=== PATIENT | male | born 1940 | race Caucasian/White ===

== ENCOUNTER 2016-11-01 14:43 | Inpatient (IN) | payer MEDICARE, OTHER ==
[~2016-11-01] VITALS: Ht 182.9 cm; Wt 93.0 kg
[2016-11-04] MEDS ORDERED: MULTTAB23 PO (09:06)
[2016-11-04] MEDS ORDERED: FISH1000 PO (09:06)
[2016-11-04] MEDS ORDERED: VITA10006 PO (09:06)
[2016-11-04] MEDS ORDERED: VITA20003 PO (09:06)
[2016-11-04] MEDS ORDERED: GLUCTAB32 PO (09:06)
[2016-11-04] MEDS ORDERED: ATOR20TA15 PO (09:06)
[2016-11-04] MEDS ORDERED: VITA10007 PO (09:06)
[2016-11-04] MEDS ORDERED: ASPI81CH CHEW (09:06)
[2016-11-20] MEDS: LACTATED RINGER'S 1000 ML IV SCH (05:45)
[2016-11-20 05:50] VITALS: BP 164/93; PULSE 87; RESP 20; TEMP 97.8; O2SAT 97
[2016-11-20] MEDS ORDERED: METOPROLOL TARTRATE 25 MG TAB PO PRN (06:00)
[2016-11-20] MEDS ORDERED: SODIUM CHLORID 0.9% 500 ML IV SCH (06:00)
[2016-11-20] MEDS ORDERED: ceFAZolin 2 GM PREMIX 50 ML IV SCH (06:00)
[2016-11-20] MEDS ORDERED: VANCOMYCIN 1000 MG/NS 250 ML (for <70 kg) IV SCH ×2 (06:00)
[2016-11-20] MEDS ORDERED: INSULIN HUMAN REGULAR 1,000 UNITS/10 ML VIAL SQ PRN (06:00)
[2016-11-20] MEDS ORDERED: POVIDONE IODINE 7.5% SCRUB 118 ML BOTTLE TOPICAL SCH (06:00)
[2016-11-20] MEDS ORDERED: DEXAMETHASONE SOD PHOS 20 MG/5 ML VIAL IV SCH (06:00)
[2016-11-20] MEDS ORDERED: GENTAMICIN SULFATE 80 MG/2 ML VIAL ONE (06:17)
[2016-11-20] MEDS ORDERED: ACETAMINOPHEN 1000 MG/100 ML VIAL IV ONE (06:44)
[2016-11-20] MEDS ORDERED: MIDAZOLAM HCL 2 MG/2 ML VIAL ONE (06:45)
[2016-11-20] MEDS ORDERED: FAMOTIDINE 20 MG/2 ML VIAL ONE (06:45)
--- NOTE | 2016-11-20 06:56 | HHI.FF ---
Face to Face Verification Diagnosis: (1) Status post total hip replacement, left (2) Osteoarthritis of left hip Physical Therapy Gait training, Transfer training, bed to chair Hip: Total hip Left LE Weight Bearing: WB as tolerated Left LE Range of Motion: Active ROM Nursing Nursing: Blair teaching, Dressing changes Dressing Changes: Daily dressing change I have seen patient Juan M Lu on 11/20/16. My clinical findings support the need for the requested home health care services because: Limited ability to care for self High risk of falls I certify that my clinical findings support that this patient is homebound because: Post-op weakness Unsteady gait/balance Desmond Chris Nov 20, 2016 06:56
--- NOTE | 2016-11-20 06:56 | HHI.DCPOC ---
Discharge Care Plan Diagnosis: (1) Status post total hip replacement, left (2) Osteoarthritis of left hip Your Health Problems Are: Difficulty with ADL Goals to Promote Your Health * To prevent worsening of your condition and complications * To maintain your health at the optimal level Directions to Meet Your Goals Take your medications as prescribed Follow your dietary instruction Follow activity as directed Keep your appointments as scheduled Take your immunizations and boosters as scheduled If your symptoms worsen call your PCP, if no PCP go to Urgent Care Center or Emergency Room Smoking is Dangerous to Your Health. Avoid second hand smoke Call the 24-hour hour crisis hotline for domestic abuse at Desmond Chris Nov 20, 2016 06:56
[2016-11-20] MEDS ORDERED: COMMODE 3-IN-11 MIS (06:58)
[2016-11-20] MEDS ORDERED: WALKER WHEELS/F1 MIS (06:58)
[2016-11-20] MEDS ORDERED: SODIUM CHLORIDE 0.9% IV SCH ×2 (07:00→08:45)
[2016-11-20] MEDS ORDERED: TRANEXAMIC ACID IV SCH ×2 (07:00→08:45)
[2016-11-20] MEDS ORDERED: EXPAREL PERI-ARTICULAR INJECTION (TOTAL VOL. 60 ML) P-ARTICULR SCH ×2 (07:00)
[2016-11-20] MEDS ORDERED: MAGNESIUM HYDROXIDE SUSP 30 ML CUP PO PRN (08:45)
[2016-11-20] MEDS ORDERED: MORPHINE SULFATE 4 MG/ML INJ IV PUSH PRN (08:45)
[2016-11-20] MEDS ORDERED: BISACODYL 10 MG SUPP PR PRN (08:45)
[2016-11-20] MEDS ORDERED: Post-op Orders (for Pharmacy) MISC XX ONE (08:45)
[2016-11-20] MEDS ORDERED: ALUMINUM/MAGNESIUM/SIMETH 30 ML CUP PO PRN (08:45)
[2016-11-20] MEDS ORDERED: SODIUM CHLORIDE 0.9% FLUSH 5 ML FLUSH IVF PRN (08:45)
[2016-11-20] MEDS ORDERED: ZOLPIDEM TARTRATE 5 MG TAB PO PRN (08:45)
[2016-11-20] MEDS ORDERED: NALOXONE HCL 0.4 MG/ML AMP IV PRN (08:45)
[2016-11-20] MEDS ORDERED: ONDANSETRON HCL 4 MG/2 ML VIAL IVP PRN (08:45)
[2016-11-20] MEDS ORDERED: ACETAMINOPHEN/HYDROcodone 325 MG/5 MG TAB PO PRN (08:45)
[2016-11-20] MEDS ORDERED: diphenhydrAMINE HCL 50 MG/ML VIAL IV PRN (08:45)
--- NOTE | 2016-11-20 08:49 | PD.OP ---
cc: Noe Lopez MD Operative Report Date of Surgery: Nov 20, 2016 Preoperative Diagnosis: Left hip severe osteoarthritis Postoperative Diagnosis: Same Procedure: Left total hip arthroplasty Anesthesia: Gen. Surgeon: Noe Lopez Kiln Worker(s): DIMITRI Mcdonnell The surgical procedure was assisted by my Advanced Registered Nurse Practitioner. My LOAN ADVISER presence was necessary throughout this case for the manipulation and positioning of the surgical extremity. My LOAN ADVISER was assisting me throughout the duration of this procedure. The skill set of an Advance Registered Nurse Practitioner was medically necessary to complete this procedure. During the surgical case, the surgical assistant certified was working at the back table and the Advance Registered Nurse Practitioner was directly assisting me. Operation and Findings: IMPLANT DESCRIPTION: 1. [place] Gription Cup, acetabular size 58. 2. [place] AltrX polyethylene, neutral. 4. [place] femoral stem size 10, no collar, high offset. 5. Femoral head/neck metal, 36, 1.5. ESTIMATED BLOOD LOSS: 250 cc. JUSTIFICATION FOR PROCEDURE: The patient has end-stage osteoarthritis to the hip. There is an attached conservative measures pathway form in the chart that describes the nonoperative measures that were undertaken prior to consideration of surgical management. The patient understood the risks and benefits of surgical management. See my office notes for further details. PROCEDURE: The patient was brought back to the operative theatre. Adequate anesthesia was obtained. The patient received intravenous vancomycin and Ancef. The patient was carefully placed on the operative table. The lower extremity was prepped and draped in the usual sterile fashion. Fluoroscopic images were obtained. We made a standard anterior incision over the hip. We dissected through the TFL fascia, exposing the anterior capsule. Arthrotomy was performed in a T-shaped fashion. The capsule was tagged with a #2 FiberWire. End-stage arthritis was identified. Osteotomy was performed through the femoral neck exposing the acetabulum. Remnants of the labrum were resected and osteophytes were removed. We sequentially reamed the acetabulum. We trialed the hip and placed the final cup into position. This was done under fluoroscopic guidance to obtain the appropriate inclination and anteversion. A manhole cover was placed into the acetabular component. We then placed the final polyethylene into position and confirmed that it was well seated. Capsular attachments on the calcar and the inner aspect of the greater trochanter were resected. On the proximal aspect of the femur we used a rongeur , box osteotome, canal finder, sequential broaches and lateralizing rasp. We calcar planed the proximal femur. Then thoroughly irrigated the wound. Note that when we were impacting the metaphyseal bone of the proximal femur we found that this bone was rather dense. We attempted to go up another size on the femoral broach up to a size 11 and we were unable to sink this more than mcc , therefore we ultimately went with the size 10. We trialed the hip with the appropriate size stem. We placed the final stem in to position and trialed again. The hip was stable while it was externally rotated 70 degrees when the leg was lowered to the floor. The final head was applied, and final fluoroscopic images were obtained. The wound was thoroughly irrigated again. Interarticular injection of liposomal bupivacaine was given. The capsule was closed with #2 FiberWire and #1 Vicryl. The deep fascia was closed with a #2 Stratafix, followed by 2-0 Vicryl in the skin and ab. Postop plan is to weight-bear as tolerated. DVT prophylaxis will be performed with Jazmin, NICOLE blum, early mobilization, and Lovenox followed by aspirin. Noe Lopez MD Nov 20, 2016 08:49
[2016-11-20] MEDS ORDERED: NORC5TAB PO (08:52)
[2016-11-20] MEDS ORDERED: ASPI325T PO (08:52)
[2016-11-20] MEDS ORDERED: ENOX40P SQ (08:52)
[2016-11-20] MEDS: SODIUM CHLORIDE 0.9% FLUSH 5 ML FLUSH IVF SCH ×2 (09:00→20:14)
[2016-11-20] MEDS: ATORVASTATIN 20 MG TAB PO SCH (09:00)
[2016-11-20] MEDS ORDERED: DO NOT ADM ANY ANTICOAGULANT DRUGS XX PRN (09:07)
[2016-11-20] MEDS ORDERED: fentaNYL CITRATE 250 MCG/5 ML AMP ONE (09:14)
[2016-11-20] MEDS: SODIUM CHLOR 0.9% 1000 ML INJ 1,000 ML IV SCH ×2 (09:27→20:14)
[2016-11-20] MEDS ORDERED: *morphine SULFATE 8 MG/ML PERIprocedure ONLY ONE ×2 (09:35→10:07)
--- NOTE | 2016-11-20 10:35 | RADRPT ---
EXAM DATE/TIME: 11/20/2016 09:44 [facility] COMPARISON: No previous studies available for comparison. INDICATIONS : Post-op left hip. MEDICAL HISTORY : None. SURGICAL HISTORY : None. ENCOUNTER: Initial ACUITY: 1 day PAIN SCORE: 0/10 LOCATION: Left Hip/Pelvis. FINDINGS: Examination of the hip demonstrates total hip arthroplasty in satisfactory position. The alignment is anatomic. CONCLUSION: Post surgical changes as above. Manuel Fiore MD on November 20, 2016 at 10:32 Board Certified Radiologist. This report was verified electronically.
[2016-11-20 11:00] VITALS: BP 119/72; PULSE 68; RESP 18; TEMP 98.8; O2SAT 98
[2016-11-20] MEDS: ACETAMINOPHEN/HYDROcodone 325 MG/5 MG TAB PO PRN ×3 (11:15→22:05)
[2016-11-20] MEDS ORDERED: ONDANSETRON HCL 4 MG/2 ML VIAL IV PUSH ONE (12:00)
[2016-11-20] MEDS ORDERED: PROPOFOL 200 MG/20 ML AMP IV ONE (12:00)
[2016-11-20] MEDS ORDERED: LACTATED RINGER'S 1000 ML INJ 1,000 ML IV ONE (12:00)
[2016-11-20] MEDS ORDERED: NEOSTIGMINE 3 MG/3 ML SYR IV ONE (12:00)
--- NOTE | 2016-11-20 14:44 | RADRPT ---
EXAM DATE/TIME: 11/20/2016 07:20 [facility] COMPARISON: No previous studies available for comparison. INDICATIONS : Left total hip replacement. MEDICAL HISTORY : Unobtainable. SURGICAL HISTORY : Unobtainable. ENCOUNTER: Initial ACUITY: 1 day PAIN SCORE: Non-responsive. LOCATION: Left hip. FINDINGS: 2 magnified C-arm spot views are centered over the left hip. These reveal a total hip prosthesis in g ood position on these frontal projections. Air is seen within the joint. The visualized portions of t he left hemipelvis are unremarkable. CONCLUSION: Left hip prosthesis in good position. Shailesh Magallanes Jr., MD on November 20, 2016 at 14:41 Board Certified Radiologist. This report was verified electronically.
--- NOTE | 2016-11-20 16:14 | PD.CONS ---
HPI Service [facility] Hospitalists Consult Requested By Orthopedic surgery Reason for Consult Medical management Primary Care Physician No Primary Care Physician Diagnoses: (1) Osteoarthritis of left hip (2) Status post total hip replacement, left History of Present Illness Mr. Lu is a pleasant 76-year-old male with a history of hyperlipidemia who underwent left total hip arthroplasty today 11/20/2016. Currently patient has no acute concerns. Sitting in his chair. Denies any changes in bowel or bladder habits. Denies any chest pain, shortness of breath , fever or chills. Hospitalist service was consulted for medical management. Review of Systems ROS Limitations: Other (negative except as noted in the history of present illness) Past Family Social History Allergies: Coded Allergies: No Known Allergies (Unverified , 11/20/16) Past Medical History Hyperlipidemia Past Surgical History No surgeries in the past Reported Medications Atorvastatin 20 mg by mouth Friday Multivitamins Aspirin 81 mg daily Fish oil, vitamin D, vitamin E, vitamin C, glucosaminechondroitin supplement. Family History Father had cancer, Alzheimer's. Social History Patient denies using tobacco or illicit drugs. He drinks socially about 1-2 times per week. Physical Exam Vital Signs Vital Signs Date Time Temp Pulse Resp B/P Pulse Ox O2 Delivery O2 Flow Rate FiO2 11/20/16 11:00 98.8 68 18 119/72 98 11/20/16 10:30 98.8 67 16 143/78 97 Nasal Cannula 2 11/20/16 10:15 69 16 142/77 97 Nasal Cannula 2 11/20/16 10:00 66 16 140/81 99 Nasal Cannula 2 11/20/16 09:45 59 16 139/72 99 Nasal Cannula 2 11/20/16 09:30 62 16 129/76 98 Nasal Cannula 2 11/20/16 09:15 64 18 142/84 98 Nasal Cannula 2 11/20/16 09:08 98.7 69 18 174/85 99 Nasal Cannula 2 11/20/16 05:50 97.8 87 20 164/93 97 Physical Exam GENERAL: This is a well-nourished, well-developed patient, in no apparent distress. SKIN: No rashes, ecchymoses or lesions. Warm and dry. HEAD: Atraumatic. Normocephalic. No temporal or scalp tenderness. EYES: Pupils equal round and reactive. No injection or drainage. ENT: Nose without bleeding, purulent drainage or septal hematoma. Airway patent. NECK: Trachea midline. No lymphadenopathy. Supple, nontender, no meningeal signs. CARDIOVASCULAR: Regular rate and rhythm without gallops, or rubs. No JVD. There is a systolic harsh murmur 3/6 heard on the left sternal border, loudest at apex. RESPIRATORY: Clear to auscultation. Breath sounds equal bilaterally. No wheezes , rales, or rhonchi. GASTROINTESTINAL: Abdomen soft, non-tender, nondistended. No guarding. MUSCULOSKELETAL: Extremities without clubbing, cyanosis, or edema. NEUROLOGICAL: Awake and alert. Cranial nerves II through XII intact. No focal neurological deficits. Normal speech. Laboratory Laboratory Tests Test 11/20/16 05:50 Blood Type O POSITIVE Antibody Screen NEGATIVE Blood Bank Comment Imaging Last Impressions Hip and Pelvis X-Ray 11/20/16 0000 Signed Impressions: Service Date/Time: Sunday, November 20, 2016 09:44 - CONCLUSION: Post surgical changes as above. Manuel Fiore MD Hip X-Ray 11/20/16 0000 Signed Impressions: Service Date/Time: Sunday, November 20, 2016 07:20 - CONCLUSION: Left hip prosthesis in good position. Shailesh Magallanes Jr., MD Assessment and Plan Problem List: (1) Osteoarthritis of left hip ICD Code: M16.12 Status: Acute (2) Status post total hip replacement, left ICD Code: Z96.642 Status: Acute Assessment and Plan Mr. Lu is a pleasant 76-year-old male with a history of hyperlipidemia who underwent left total hip arthroplasty. Hospitalist service was consulted for medical management. - Left hip osteoarthritis - status post left total hip arthroplasty - Continue [place] when necessary, morphine when necessary for pain. - Dulcolax suppository and milk of magnesia for bowel regimen. - Lovenox 40 mg every 24 hours starting 11/21/2016. Total 10 doses. - After 10 doses of Lovenox, Aspirin 325mg Qday for 30 days. - Hyperlipidemia - continue atorvastatin 20 mg daily. Continue Aspirin 81mg Qday after 30 days of Aspirin 325mg Qday. - Probable mitral regurgitation - Advised patient to make an appointment with a machine shop helper for an echocardiogram and also possibly periodic follow-up. - Will refer patient to [facility]. Full code. Lovenox starting 11/21/2016. Likely discharge home on 11/21/2016. Thank you for the consult. We'll continue to follow this patient with you. Lesia Kelly DO Nov 20, 2016 4:14 pm
[2016-11-20 16:42] VITALS: BP 119/70; PULSE 81; RESP 17; TEMP 98; O2SAT 96
[2016-11-20 20:28] VITALS: BP 146/76; PULSE 83; RESP 18; TEMP 98.9; O2SAT 96
[2016-11-21 01:00] VITALS: BP 113/58; PULSE 83; RESP 17; TEMP 98.7; O2SAT 93
[2016-11-21] MEDS: LACTATED RINGER'S 1000 ML IV SCH (02:56)
[2016-11-21 04:20] VITALS: BP 121/61; PULSE 88; RESP 17; TEMP 98.5; O2SAT 93
[2016-11-21] MEDS: SODIUM CHLOR 0.9% 1000 ML INJ 1,000 ML IV SCH (05:11)
[2016-11-21] MEDS: ACETAMINOPHEN/HYDROcodone 325 MG/5 MG TAB PO PRN ×2 (05:14→10:10)
[2016-11-21 06:53] LABS: HEMATOCRIT 36.4 % (39.0-51.0); MEAN CELL VOLUME 91.6 FL (80.0-100.0); MEAN CORPUSCULAR HEMOGLOBIN 30.9 PG (27.0-34.0); MEAN CORPUSCULAR HGB CONC 33.7 % (32.0-36.0); PLATELET COUNT 189 TH/MM3 (150-450); RED BLOOD COUNT 3.98 MIL/MM3 (4.50-5.90); RED CELL DISTRIBUTION WIDTH 13.1 % (11.6-17.2); REVIEW FLAG FINAL; WHITE BLOOD COUNT 7.1 TH/MM3 (4.0-11.0)
[2016-11-21 07:44] VITALS: BP 109/63; PULSE 76; RESP 18; TEMP 98.6; O2SAT 95
[2016-11-21] MEDS ORDERED: DEXAMETHASONE SOD PHOS 20 MG/5 ML VIAL IV ONE (07:45)
[2016-11-21] MEDS: SODIUM CHLORIDE 0.9% FLUSH 5 ML FLUSH IVF SCH (07:50)
[2016-11-21] MEDS: ATORVASTATIN 20 MG TAB PO SCH (07:53)
[2016-11-21] MEDS ORDERED: ENOXAPARIN SODIUM 40 MG/0.4 ML SYRINGE SQ SCH (08:00)
[2016-11-21] MEDS ORDERED: PNEUMOCOCCAL POLYVALENT INJ 25 MCG/0.5 ML SYR IM ONE (09:00)
[2016-11-21 09:35] VITALS: O2SAT 96
--- NOTE | 2016-11-21 11:14 | HHI.PR ---
Subjective Remarks Follow up for left total hip arthroplasty. Patient is doing well. No acute concerns. Objective Vitals Vital Signs Date Time Temp Pulse Resp B/P Pulse Ox O2 Delivery O2 Flow Rate FiO2 11/21/16 09:35 96 21 11/21/16 07:44 98.6 76 18 109/63 95 11/21/16 07:36 Room Air 11/21/16 04:20 98.5 88 17 121/61 93 11/21/16 01:00 98.7 83 17 113/58 93 11/20/16 20:28 98.9 83 18 146/76 96 11/20/16 18:54 Room Air 11/20/16 16:42 98.0 81 17 119/70 96 I/O 11/20/16 11/20/16 11/20/16 11/21/16 11/21/16 11/21/16 07:00 15:00 23:00 07:00 15:00 23:00 Intake Total 1159 ml 1710 ml 1735 ml Output Total 850 ml 350 ml 1400 ml Balance 309 ml 1360 ml 335 ml Intake Oral 0 ml 720 ml 920 ml IV Total 159 ml 990 ml 815 ml Other 1000 ml Output Urine Total 750 ml 350 ml 1400 ml Estimated Blood Loss 100 ml # Bowel Movements 0 0 Result Diagram: 11/21/16 0550 Imaging Last Impressions Hip and Pelvis X-Ray 11/20/16 0000 Signed Impressions: Service Date/Time: Sunday, November 20, 2016 09:44 - CONCLUSION: Post surgical changes as above. Manuel Fiore MD Hip X-Ray 11/20/16 0000 Signed Impressions: Service Date/Time: Sunday, November 20, 2016 07:20 - CONCLUSION: Left hip prosthesis in good position. Shailesh Magallanes Jr., MD Objective Remarks GENERAL: AOX3, NAD. SKIN: Warm and dry. HEAD: Normocephalic. EYES: No scleral icterus. No injection or drainage. NECK: Supple, trachea midline. No JVD or lymphadenopathy. CARDIOVASCULAR: Regular rate and rhythm without murmurs, gallops, or rubs. Systolic murmur best heard at the apex RESPIRATORY: Breath sounds equal bilaterally. No accessory muscle use. GASTROINTESTINAL: Abdomen soft, non-tender, nondistended. MUSCULOSKELETAL: No cyanosis, or edema. BACK: Nontender without obvious deformity. No CVA tenderness. Procedures Left total hip arthroplasty 11/20/2016 A/P Problem List: (1) Osteoarthritis of left hip ICD Code: M16.12 Status: Acute (2) Status post total hip replacement, left ICD Code: Z96.642 Status: Acute Assessment and Plan Mr. Lu is a pleasant 76-year-old male with a history of hyperlipidemia who underwent left total hip arthroplasty. Hospitalist service was consulted for medical management. - Left hip osteoarthritis - status post left total hip arthroplasty - Continue [place] when necessary, morphine when necessary for pain. - Dulcolax suppository and milk of magnesia for bowel regimen. - Lovenox 40 mg every 24 hours starting 11/21/2016. Total 10 doses. - After 10 doses of Lovenox, Aspirin 325mg Qday for 30 days. - Hyperlipidemia - continue atorvastatin 20 mg daily. Continue Aspirin 81mg Qday after 30 days of Aspirin 325mg Qday. - Probable mitral regurgitation - Advised patient to make an appointment with a flame cutting supervisor for an echocardiogram and also possibly periodic follow-up. - Patient will contact [facility]. Full code. Lovenox. Patient is being discharged home today. Lesia Kelly DO Nov 21, 2016 11:14 am
[2016-11-21 12:00] VITALS: BP 113/60; PULSE 83; RESP 18; TEMP 98.9; O2SAT 94
--- NOTE | 2016-11-21 12:11 | PD.ORT.PN ---
Subjective Post Op Day #: 1 Subjective Remarks The patient is OOB in chair with no pain to the left hip. Patient states he is voiding and ambulatory. Patient is wanting to go home today. Objective Vitals Vital Signs Date Time Temp Pulse Resp B/P Pulse Ox O2 Delivery O2 Flow Rate FiO2 11/21/16 09:35 96 21 11/21/16 07:44 98.6 76 18 109/63 95 11/21/16 07:36 Room Air 11/21/16 04:20 98.5 88 17 121/61 93 11/21/16 01:00 98.7 83 17 113/58 93 11/20/16 20:28 98.9 83 18 146/76 96 11/20/16 18:54 Room Air 11/20/16 16:42 98.0 81 17 119/70 96 I/O 11/20/16 11/20/16 11/20/16 11/21/16 11/21/16 11/21/16 07:00 15:00 23:00 07:00 15:00 23:00 Intake Total 1159 ml 1710 ml 1735 ml Output Total 850 ml 350 ml 1400 ml Balance 309 ml 1360 ml 335 ml Intake Oral 0 ml 720 ml 920 ml IV Total 159 ml 990 ml 815 ml Other 1000 ml Output Urine Total 750 ml 350 ml 1400 ml Estimated Blood Loss 100 ml # Bowel Movements 0 0 Result Diagram: 11/21/16 0550 Procedures Left GEN Objective Remarks The patient's dressing was changed with scant serosanguineous drainage. Incision is well approximated with surgical clips intact. No redness or s/s of infection. EHL/TA/G intact. 2+ pedal pulse. Minimal swelling. Calf is soft and nontender. + SILT Assessment & Plan Ortho Post Op Day #: 1 Problem List: Assessment and Plan POD #1: Left GEN 1. WBAT LLE 2. Lovenox for DVT prophylaxis 3. Ice to the left hip PRN 4. The patient is stable for discharge home with home health today. Desmond Chris Nov 21, 2016 12:11
[2016-11-21] MEDS ORDERED: DOCUSATE SODIUM 100 MG CAP PO SCH (21:00)
[2016-11-21] MEDS ORDERED: MULTIVITAMINS/MINERALS THERAPEUTIC TAB PO SCH (21:00)
--- NOTE | 2016-11-24 13:35 | HHI.DS ---
Discharge Summary Admission Date Nov 20, 2016 at 05:18 Discharge Date: Nov 21, 2016 Admitting Diagnosis Left hip OA Status post total hip arthroplasty, left Diagnosis: (1) Osteoarthritis of left hip Diagnosis: Principal (2) Status post total hip replacement, left Diagnosis: Principal Procedures Left GEN Brief History This is a 76 year old male patient with severe OA of the left hip CBC/BMP: 11/21/16 0550 PE at Discharge The patient's dressing was changed with scant serosanguineous drainage. Incision is well approximated with surgical clips intact. No redness or s/s of infection. EHL/TA/G intact. 2+ pedal pulse. Minimal swelling. Calf is soft and nontender. + SILT Hospital Course The patient was admitted to the hospital for severe OA of the left hip to have a left GEN. The patient's surgery went well with no complications. The patient was WBAT. The patient was on a regular diet. The patient was placed on Lovenox for DVT prophylaxis. The patient was discharged home with home health. The patient will f/u with Dr. Lopez in 1-2 weeks. Pt Condition on Discharge: Stable Discharge Disposition: Disch w/ Home Health Serv Discharge Instructions Diet Instructions: As Tolerated, No Restrictions Activities You Can Perform: Weight Bearing as Marian Activities to Avoid: Strenuous Activity Follow up Referrals: Cardiology - 2 Weeks @ [facility] Orthopedics with Noe Lopez MD New Medications: Aspirin (Aspirin) 325 Mg Tab 325 MG PO DAILY Start Aspirin after Lovenox is completed. Prevent Blood Clot # 30 Ref 0 TAB Commode 3-in-1 (Commode 3-in-1) 1 Mis Mis 1 EA .ROUTE DIRECTED #1 Ref 0 EA Enoxaparin Inj (Lovenox Inj) 40 Mg/0.4 Ml Syr 40 MG SQ DAILY Start Aspirin after Lovenox is completed. Blood Clot Prevention # 10 Ref 0 SYRINGE Hydrocodone-Acetaminophen ([place]) 5-325 mg Tab 1-2 TAB PO Q4H PRN PAIN #60 Ref 0 TAB Walker with Front Wheels (Walker with Front Wheels) 1 Mis Mis 1 EA .ROUTE DIRECTED #1 Ref 0 EA Continued Medications: Ascorbic Acid (Vitamin C) 1,000 Mg Tab 1000 MG PO Nutritional Supplement Ref 0 TAB Atorvastatin (Atorvastatin) 20 Mg Tab 20 MG PO mo,we,fr Cholesterol Management #30 Ref 0 TAB Cholecalciferol (Vitamin D) 2,000 Unit Tab 1 TAB PO DAILY Nutritional Supplement Uohvgrxsmji-Nwznqopnoba-Au Cho (Glucosamine Chondroitin & [phone] mg) 1 Tab Tab 1 TAB PO DAILY Nutritional Supplement Multiple Vitamins W/ Minerals (Multi For Him 50+) 1 Tab Tab 1 TAB PO DAILY Nutritional Supplement Discontinued Medications: Aspirin (Aspirin) 81 Mg Chew 81 MG CHEW ONCE #1 Ref 0 TAB [place]-3 Fatty Acids (Fish Oil) 1,000 Mg Cap 1 CAP PO DAILY Nutritional Supplement Vitamin E (Vitamin E) 1,000 Unit Cap 1000 UNITS PO DAILY Nutritional Supplement Ref 0 CAP Desmond Chris Nov 24, 2016 13:35
== END 2016-11-21 16:46 | disposition home health service (06) | DRG 470 ==
LOC: HSDI 11-20 05:18 → EDUNIT# 11-20 07:00 → N06A 11-20 10:46
PROVIDERS: ADMIT Orthopaedic Surgery; ATTEND Orthopaedic Surgery
PROC: 0SRB0JA Replacement of Left Hip Joint with Synthetic Substitute, Uncemented, Open Approach (ICD-10-PCS; principal; 2016-11-20 06:50)
DX: M16.12 Unilateral primary osteoarthritis, left hip (principal); I34.0 Nonrheumatic mitral (valve) insufficiency; E78.5 Hyperlipidemia, unspecified; Z87.891 Personal history of nicotine dependence
CPT/HCPCS: 73502; 76000; 85027; 86850; 86900; 86901; 94150; C1776; C9290; J0131; J0690; J1100; J1580; J1650; J2250; J2270; J2405; J2710; J3010; J3370; J7030; J7050; J7120

== ENCOUNTER → 2016-11-04 | Outpatient (CLI) | payer MEDICARE, OTHER ==
[~2016-11-04] MED LIST: ASPI325T PO; ASPI81CH CHEW; ATOR20TA15 PO; COMMODE 3-IN-11 MIS; ENOX40P SQ; FISH1000 PO; GLUCTAB32 PO; MULTTAB23 PO; NORC5TAB PO; VITA10006 PO; VITA10007 PO; VITA20003 PO; WALKER WHEELS/F1 MIS
[2016-11-04 10:08] LABS: AUTOMATED NEUTROPHIL # 3.5 TH/MM3 (1.8-7.7); BASOPHIL % 0.4 % (0.0-2.0); EOSINOPHIL # 0.1 TH/MM3 (0-0.4); EOSINOPHIL % 1.8 % (0.0-4.0); HEMATOCRIT 42.1 % (39.0-51.0); HEMO FLAGS DIFF FINAL; LYMPH % 29.1 % (9.0-44.0); LYMPHOCYTE # 1.7 TH/MM3 (1.0-4.8); MEAN CELL VOLUME 92.3 FL (80.0-100.0); MEAN CORPUSCULAR HEMOGLOBIN 31.4 PG (27.0-34.0); MONO % 10.9 % (0.0-8.0); NEUT % 57.8 % (16.0-70.0); PLATELET COUNT 178 TH/MM3 (150-450); RED BLOOD COUNT 4.56 MIL/MM3 (4.50-5.90); RED CELL DISTRIBUTION WIDTH 13.1 % (11.6-17.2)
[2016-11-04 10:16] LABS: BLOOD, URINE NEG (NEG); COMMENT (UR) CULT NOT INDICATED; CULTURE IF INDICATED CULT NOT INDICATED; GLUCOSE,URINE NEG (NEG); KETONE, URINE NEG (NEG); MUCUS URINE FEW /lpf (OCC); NITRITE,URINE NEG (NEG); PH, URINE 6.5 (5.0-8.5); SQUAMOUS EPITHELIAL CELL URINE <1 /hpf (0-5); URINE COLOR YELLOW (YELLW/STRAW)
[2016-11-04 10:23] LABS: APTT (PATIENT) 25.8 SEC (24.3-30.1); INTERNATIONAL NORMALIZED RATIO 0.9 RATIO; PROTHROMBIN TIME - PATIENT 10.2 SEC (9.8-11.6)
[2016-11-04 10:30] LABS: WESTERGREN SEDIMENTATION RATE 6 mm/hr (0-20)
[2016-11-04 10:35] LABS: ALKALINE PHOSPHATASE 33 U/L (45-117); ALT (GPT) 20 U/L (12-78); ANION GAP 7 MEQ/L (5-15); AST (GOT) 21 U/L (15-37); BLOOD UREA NITROGEN 19 MG/DL (7-18); CHLORIDE 106 MEQ/L (98-107); GLOMERULAR FILTRATION RATE 98 ML/MIN (>89); GLUCOSE,FASTING 107 MG/DL (74-99); POTASSIUM 4.1 MEQ/L (3.5-5.1); SODIUM (NA) 145 MEQ/L (136-145); TOTAL BILIRUBIN ADULT 0.6 MG/DL (0.2-1.0)
--- NOTE | 2016-11-04 12:33 | RADRPT ---
EXAM DATE/TIME: 11/04/2016 11:45 [facility] COMPARISON: No previous studies available for comparison. INDICATIONS : Evaluate for pneumonia, pneuthorax and communicable disease. MEDICAL HISTORY : None. SURGICAL HISTORY : None. ENCOUNTER: Initial ACUITY: 1 day PAIN SCORE: 0/10 LOCATION: Bilateral chest FINDINGS: PA and lateral views of the chest demonstrate the lungs to be symmetrically aerated without evidence of mass, infiltrate or effusion. The cardiomediastinal contours are unremarkable. Osseous structure s are intact. CONCLUSION: No acute disease. Luis Antonio Payan MD on November 04, 2016 at 12:31 Board Certified Radiologist. This report was verified electronically.
--- NOTE | 2016-11-05 14:42 | EKG ---
Date Performed: 11/04/2016 Time Performed: 08:57:26 PTAGE: 76 years EKG: Sinus rhythm NORMAL ECG NO PREVIOUS TRACING DOCTOR: Andre Ellington Interpretating Date/Time 11/05/2016 14:38:58
== END ==
LOC: CPRE 08:35
PROVIDERS: ATTEND Orthopaedic Surgery
DX: M25.50 Pain in unspecified joint (principal); M16.12 Unilateral primary osteoarthritis, left hip; M79.609 Pain in unspecified limb
CPT/HCPCS: 36415; 71020; 80053; 81001; 85025; 85610; 85652; 85730; 93005